=== PATIENT | female | born 2005 | race Hispanic/Latino ===

== ENCOUNTER 2023-02-24 13:43 | Outpatient (CLI) | payer OTHER, SELFPAY ==
[2023-02-24 17:50] LABS: Thyroid Stimulating Hormone < 0.015 uIU/mL (0.465-4.680)
[2023-02-28 11:36] LABS: Thyroid Peroxidase Antibodies 383 IU/mL (<9)
== END 2023-02-24 13:44 | disposition home or self-care (01) ==
LOC: ANHWCLAB 13:48
PROVIDERS: PCP Registered Nurse; Visit Provider Internal Medicine
DX: R79.89 Other specified abnormal findings of blood chemistry (principal)
CPT/HCPCS: 36415; 84439; 84443; 84445; 86376

== ENCOUNTER 2023-07-13 14:01 | Outpatient (CLI) | payer OTHER, SELFPAY ==
[2023-07-13 16:52] LABS: Alanine Aminotransferase 37 U/L (6-35); Albumin Level 4.2 g/dL (3.5-5.1); Alkaline Phosphatase 156 U/L (38-126); Anion Gap 12 mmol/L (8-16); Aspartate Amino Transferase 58 U/L (14-36); Bilirubin,Total 0.4 mg/dL (0.2-1.3); Blood Urea Nitrogen 9 mg/dL (7-17); Calcium 9.2 mg/dL (8.4-10.2); Carbon Dioxide 20 mmol/L (22-30); Chloride 105 mmol/L (98-107); Estimated Glomerular Filt Rate > 60; Glucose 100 mg/dL (65-110); Sodium 137 mmol/L (137-145)
[2023-07-13 17:14] LABS: SPREG INTERNAL CONTROL Positive; Serum Qual hCG Negative
[2023-07-13 17:15] LABS: Free T4 Free Thyroxine 3.06 ng/mL (0.78-2.19)
[2023-07-13 17:30] LABS: Thyroid Stimulating Hormone < 0.015 uIU/mL (0.465-4.680)
[2023-07-13 18:10] LABS: Total Triiodothyronine (T3) 2.46 NG/ML (0.97-1.69)
[2023-07-16 14:31] LABS: Thyroid Stimulating Immunoglob 198 % baseline (<140)
[2023-07-19 20:38] LABS: Thyrotropin Receptor Antibody 2.94 IU/L (<=2.00)
== END 2023-07-13 14:02 | disposition home or self-care (01) ==
LOC: ANHWCLAB 14:03
PROVIDERS: PCP Registered Nurse; Visit Provider Internal Medicine
DX: E04.1 Nontoxic single thyroid nodule (principal); E05.90 Thyrotoxicosis, unspecified without thyrotoxic crisis or storm; N92.6 Irregular menstruation, unspecified
CPT/HCPCS: 36415; 80053; 83519; 84439; 84443; 84445; 84480; 84703

== ENCOUNTER 2023-08-20 16:25 | Outpatient (CLI) | payer OTHER, SELFPAY ==
--- NOTE | ~2023-08-20 | US_ITS ---
EXAMINATION: US thyroid DATE: 08/20/2023 16:49 INDICATION: Thyroid nodule. Hyperthyroidism. TECHNIQUE: Multiple ultrasound images of the thyroid were obtained. COMPARISON: None. FINDINGS: The right thyroid lobe measures 5.1 x 1.7 x 1.8 cm. The left thyroid lobe measures 4.5 x 1.2 x 1.4 c m. The thyroid is diffusely heterogeneous and hypoechoic with increased vascularity. No discrete nod ule. IMPRESSION: 1. Heterogeneous, hypervascular thyroid, consistent with chronic lymphocytic (Kalpana) thyroiditis versus Graves disease. Reviewed, dictated and finalized at location E. OGY INSTRUCTOR IMPRESSION: 1. Heterogeneous, hypervascular thyroid, consistent with chronic lymphocytic (H ashimoto) thyroiditis versus Graves disease.
== END 2023-08-20 16:26 | disposition home or self-care (01) ==
PROVIDERS: PCP Registered Nurse; Visit Provider Internal Medicine
DX: E04.1 Nontoxic single thyroid nodule (principal); E05.90 Thyrotoxicosis, unspecified without thyrotoxic crisis or storm
CPT/HCPCS: 76536

== ENCOUNTER 2023-10-12 13:26 | Outpatient (CLI) | payer OTHER, SELFPAY ==
[2023-10-12 17:47] LABS: Thyroid Stimulating Hormone < 0.015 uIU/mL (0.465-4.680); Total Triiodothyronine (T3) 1.74 NG/ML (0.97-1.69)
[2023-10-12 18:49] LABS: Free T4 Free Thyroxine 1.59 ng/mL (0.78-2.19)
[2023-10-12 19:07] LABS: Alanine Aminotransferase 29 U/L (6-35); Albumin Level 4.3 g/dL (3.5-5.1); Alkaline Phosphatase 138 U/L (38-126); Anion Gap 11 mmol/L (4-12); Aspartate Amino Transferase 55 U/L (14-36); Bilirubin,Total 0.4 mg/dL (0.2-1.3); Blood Urea Nitrogen 11 mg/dL (7-17); Calcium 9.4 mg/dL (8.4-10.2); Carbon Dioxide 20 mmol/L (22-30); Chloride 108 mmol/L (98-107); Estimated Glomerular Filt Rate > 60; Glucose 78 mg/dL (65-110); Potassium 3.9 mmol/L (3.4-5.0); Sodium 139 mmol/L (137-145)
== END 2023-10-12 13:27 | disposition home or self-care (01) ==
LOC: ANHWCLAB 13:27
PROVIDERS: PCP Registered Nurse; Visit Provider Internal Medicine
DX: E05.90 Thyrotoxicosis, unspecified without thyrotoxic crisis or storm (principal); E04.1 Nontoxic single thyroid nodule; R79.89 Other specified abnormal findings of blood chemistry
CPT/HCPCS: 36415; 80053; 84439; 84443; 84480

== ENCOUNTER 2023-11-24 10:32 | Outpatient (CLI) | payer OTHER, SELFPAY ==
[2023-11-24 12:53] LABS: Alanine Aminotransferase 53 U/L (6-35); Albumin Level 4.4 g/dL (3.5-5.1); Alkaline Phosphatase 130 U/L (38-126); Anion Gap 8 mmol/L (4-12); Aspartate Amino Transferase 82 U/L (14-36); Bilirubin,Total 0.7 mg/dL (0.2-1.3); Blood Urea Nitrogen 9 mg/dL (7-17); Calcium 9.4 mg/dL (8.4-10.2); Carbon Dioxide 21 mmol/L (22-30); Chloride 108 mmol/L (98-107); Estimated Glomerular Filt Rate > 60; Glucose 102 mg/dL (65-110); Potassium 4.1 mmol/L (3.4-5.0); Sodium 137 mmol/L (137-145)
[2023-11-24 13:23] LABS: Thyroid Stimulating Hormone < 0.015 uIU/mL (0.465-4.680); Total Triiodothyronine (T3) 2.13 NG/ML (0.97-1.69)
[2023-11-24 15:01] LABS: Free T4 Free Thyroxine 2.24 ng/mL (0.78-2.19)
[2023-11-25 10:48] LABS: Prolactin 6.5 ng/mL
== END 2023-11-24 10:33 | disposition home or self-care (01) ==
LOC: ANHWCLAB 10:33
PROVIDERS: PCP Registered Nurse; Visit Provider Internal Medicine
DX: E05.90 Thyrotoxicosis, unspecified without thyrotoxic crisis or storm (principal); E04.1 Nontoxic single thyroid nodule; N92.6 Irregular menstruation, unspecified
CPT/HCPCS: 36415; 80053; 84146; 84439; 84443; 84480

== ENCOUNTER 2024-03-21 15:09 | Outpatient (CLI) | payer OTHER, SELFPAY ==
[2024-03-21 16:02] LABS: Alanine Aminotransferase 47 U/L (6-35); Albumin Level 4.6 g/dL (3.5-5.1); Alkaline Phosphatase 111 U/L (38-126); Anion Gap 11 mmol/L (4-12); Aspartate Amino Transferase 38 U/L (14-36); Bilirubin,Total 0.4 mg/dL (0.2-1.3); Blood Urea Nitrogen 9 mg/dL (7-17); Calcium 9.4 mg/dL (8.4-10.2); Carbon Dioxide 24 mmol/L (22-30); Chloride 101 mmol/L (98-107); Estimated Glomerular Filt Rate > 60; Glucose 90 mg/dL (65-110); Potassium 3.7 mmol/L (3.4-5.0); Sodium 136 mmol/L (137-145)
[2024-03-21 16:33] LABS: Thyroid Stimulating Hormone < 0.015 uIU/mL (0.465-4.680); Total Triiodothyronine (T3) 2.17 NG/ML (0.97-1.69)
[2024-03-21 18:49] LABS: Free T4 Free Thyroxine 1.89 ng/mL (0.78-2.19)
[2024-03-23 04:39] LABS: DHEA-Sulfate 107 mcg/dL (44-286)
[2024-03-26 13:58] LABS: Testosterone Total 42 ng/dL (2-45)
[2024-03-29 06:08] LABS: Testosterone Free 3.5 pg/mL (0.2-5.0)
== END 2024-03-21 15:10 | disposition home or self-care (01) ==
LOC: ANHLAB 15:12
PROVIDERS: PCP Registered Nurse; Visit Provider Internal Medicine
DX: E04.1 Nontoxic single thyroid nodule (principal); R74.8 Abnormal levels of other serum enzymes
CPT/HCPCS: 36415; 80053; 82627; 83498; 84402; 84403; 84439; 84443; 84480

== ENCOUNTER 2024-08-25 15:54 | Outpatient (CLI) | payer OTHER, SELFPAY ==
--- OUTSIDE RECORDS SUMMARY | 2024-08-25 15:57 | XMS_ITS | Patient Health Summary ---
Author Organization [facility] Address [address] [place] [address] Care Team Providers Care Floorhand Name Role Phone Dania Hudson Kayode SINGER SONGWRITER-BAG CHECKER Primary Care Pro vider Note from [facility],non-owned Affiliates and Associated Physician Practices is amultiple site organization consisting of ambulatory clinics and hospital sitesin [place], [place], [place] and [place]. This disclosure is being madepursuant to the Care Everywhere program and may not contain all information available regarding this patient. Last updated 18.[facility] Allergies No known active allergies Medications * Be aware that medications may not be up to date on this document. Alwaysverify current medications with the patient. * clobetasol (TEMOVATE) 0.05 % solution(Started 10/01/2016) Apply to affected area 2 times daily Apply to areas of hairloss on scalp twice daily. 2 refills remaining * fluocinonide (LIDEX) 0.05 % solution(Started 10/06/2016) Apply to areas of hairloss on scalp twice daily Active Problems Problem Noted Date Diagnosed Date Alopecia areata 10/01/2016 Social History Tobacco Use Types Packs/Day Years Used Date Smoking Tobacco: Passive Smo ke Exposure - Never Smoker Alcohol Use Standard Drinks/Week Comments No 0 (1 standard drink = 0.6 oz pur e alcohol) Sex and Gender Information Value Date Recorded Sex Assigned at Not on file Gender Identity Not on file Sexual Orientation Not on file Last Filed Vital Signs Vital Sign Reading Time Taken Comments Blood Pressure - - Pulse - - Temperature - - Respiratory Rate - - Oxygen Saturation - - Inhaled Oxygen Concentration - - Weight 56.9 kg (125 lb 7.1 oz) 10/01/2016 2:33 P M CDT Height 163 cm (5' 4.17 ) 10/01/2016 2:33 PM CDT Body Mass Index 21.42 10/01/2016 2:33 PM CDT Care Teams Floorhand Relationship Specialty Start Date End Date Dania Hudson APRN-BAG CHECKER [address] [place] [id number] PCP - General Nurse Practitioner 07/02/16
--- OUTSIDE RECORDS SUMMARY | 2024-08-25 15:57 | XMS_ITS | Referral Summary ---
Author Organization [facility] Address [address] [place] [address] Care Team Providers Care Turner Machine Name Role Phone Dania Hudson NP Primary Care Provider [phone] Sheldon Ureña MD Unavailable [phone] Marzena Gipson MD Unavailable [phone] Encounters Date Type Department Care Team Description 08/01/2024 Telephone [facility] Emergency Department [address] [place] [address] Serafin Pratt RN 07/30/2024 11:31 PM MANAGER SERVICING - 07/31/2024 1:44 AM [facility] Emergency [facility] Emergency Department [address] [place] [address] Hypothyroidism, unspecified type (Primary Dx); Generalized body aches Discharge Disposition: Discharge to home or self care from Last 3 Months Allergies No known active allergies Medications propylthiouraci L (PTU) 50 mg tablet Take 1 tablet (50 mg total) by mouth 3 (three) times a day 4 Active levothyroxine (SYNTHROID) 75 mcg tablet Take 1 tablet (75 mcg total) by mouth real estate accountant before breakfast 30 tablet 5 08/30/19 25 Active Active Problems Problem Noted Date Diagnosed Date Graves disease 10/25/2023 Social History Tobacco Use Types Packs/Day Years Used Date Smoking Tobacco: Never Smokeless Tobacco: Never Tobacco Cessation:Counseling Given: Not Answered Personal Safety Answer Date Recorded Have you ever been in or are you currently in a harmful physical or emotional relationship or is someone making you feel afraid or unsafe? Denies 07/30/2024 Comments Unknown Sex and Gender Information Value Date Recorded Sex Assigned at Not on file Legal Sex Female 3:40 PM CDT Gender Identity Female 03/11/2021 3:43 PM CDT Sexual Orientation Not on file Last Filed Vital Signs Vital Sign Reading Time Taken Comments Blood Pressure 142/97 07/30/2024 9:50 PM MANAGER SERVICING Pulse 87 07/30/2024 9:50 PM MANAGER SERVICING Temperature 36.6 C (97.8 F) 07/30/2024 9:50 PM MANAGER SERVICING Respiratory Rate 18 07/30/2024 9:50 PM MANAGER SERVICING Oxygen Saturation 100% 07/30/2024 9:50 PM MANAGER SERVICING Inhaled Oxygen Concentration - - Weight 86.2 kg (190 lb) 07/30/2024 9:50 PM MANAGER SERVICING Height 167.6 cm (5' 6 ) 07/30/2024 9:50 PM MANAGER SERVICING Body Mass Index 30.67 07/30/2024 9:50 PM MANAGER SERVICING Plan of Treatment Not on file Procedures Procedure Name Priority Date/Time Associated Diagnosis Comments RESPIRATORY PATHOGEN PANEL Routine 07/31/2024 12:13 AM MANAGER SERVICING POCT HCG, URINE Routine 07/30/2024 10:21 PM MANAGER SERVICING URINALYSIS, MICROSCOPIC ONLY STAT 07/30/2024 10:10 PM MANAGER SERVICING URINALYSIS AND REFLEX TO MICROSCOPIC AND CULTURE STAT 07/30/2024 10:10 PM MANAGER SERVICING T4, FREE STAT 07/30/2024 10:01 PM MANAGER SERVICING TSH STAT 07/30/2024 10:01 PM MANAGER SERVICING EGFR STAT 07/30/2024 10:01 PM MANAGER SERVICING DIFFERENTIAL AUTO STAT 07/30/2024 10: 01 PM MANAGER SERVICING CREATINE KINASE (CK), TOTAL STAT 07/30/2024 10:01 PM MANAGER SERVICING ERYTHROCYTE SEDIMENTATION RATE STAT 07/30/2024 10:01 PM MANAGER SERVICING COMPREHENSIVE METABOLIC PANEL STAT 07/30/2024 10:01 PM MANAGER SERVICING CBC WITH AUTO DIFFERENTIAL STAT 07/30/2024 10:01 PM MANAGER SERVICING from Last 3 Months Results * Respiratory pathogen panel Nasopharyngeal (07/31/2024 12:13 AM MANAGER SERVICING) [facility] Influenza A RNA Not Detected Not Detected Influenza B RNA Not Detected Not Detected [facility] RSV RNA Not Detected Not Detected [facility] COVID-19 RNA Not Detected Not Detected [facility] Coronavirus 229E RNA Not Detected Not Detected [facility] Coronavirus HKU1 RNA Not Detected Not Detected [facility] Coronavirus NL63 RNA Not Detected Not Detected [facility] Coronavirus OC43 RNA Not Detected Not Detected [facility] Adenovirus DNA Not Detected Not Detected [facility] Metapneumovirus RNA Not Detected Not Detected [facility] Rhinovirus/Enterov irus RNA Not Detected Not Detected [facility] Parainfluenza 1 RNA Not Detected Not Detected [facility] Parainfluenza 2 RNA Not Detected Not Detected [facility] Parainfluenza 3 RNA Not Detected Not Detected [facility] Parainfluenza 4 RNA Not Detected Not Detected [facility] B. pertussis DNA Not Detected Not Detected [facility] B. parapertussis DNA Not Detected Not Detected [facility] C. pneumoniae DNA Not Detected Not Detected [facility] M. pneumoniae DNA Not Detected Not Detected [facility] Nasopharyngeal 07/31/2024 12 :13 AM MANAGER SERVICING 07/31/2024 12:39 AM MANAGER SERVICING Narrative [facility] - 07/31/2024 1:37 AM MANAGER SERVICING Is the Patient experiencing symptoms consistent with COVID?->No Surveillance testing for transplant patient?->No Interpretive Data The [employer] FilmArray Respiratory Panel (RP2.1) assay is a multiplexed real-time PCR based nucleic acid test capable of simultaneous qualitative detection and identification of multiple respiratory viral and bacterial nucleic acids, including SARS Coronavirus 2 (the causative agent of COVID-19). The following bacteria, viruses and virus subtypes can be identified using the FilmArray RP2.1 assay: Bordetella pertussis, Bordetella parapertussis, Chlamydia pneumoniae, Mycoplasma pneumoniae, Adenovirus, SARS Coronavirus 2, seasonal coronaviruses (Coronavirus HKU1, Coronavirus NL63, Coronavirus 229E, and Coronavirus OC43), Influenza A, Influenza A subtype H1, Influenza A subtype H3, Influenza A subtype 2009 H1, Influenza B, Metapneumovirus, Parainfluenza 1, Parainfluenza 2, Parainfluenza 3, Parainfluenza 4, RSV, Rhinovirus/Enterovirus. Due to the genetic similarity between human Rhinovirus and Enterovirus, the FilmArray RP2.1 assay cannot reliably differentiate them. Coronavirus OC43 may cross-react with some isolates of Coronavirus HKU1. A dual positive result may be due to cross-reactivity or may indicate a co- infection. The detection and identification of specific viral and bacterial nucleic acids from individuals exhibiting signs and symptoms of a respiratory infection aids in the diagnosis of respiratory infection if used in conjunction with other clinical and epidemiological information. The results of this test should not be used as the sole basis for diagnosis, treatment, or other management decisions. Negative results in the setting of a respiratory illness may be due to infection with pathogens that are not detected by this test. Positive results do not rule out infection/co-infection with other organisms. The agent(s) detected by the FilmArray RP2.1 may not be the definite cause of disease. Additional testing (lab, imaging, etc.) may be necessary when evaluating a patient with possible respiratory tract infection. The FilmArray RP2.1 assay has FDA clearance for testing of HIDE INSPECTOR swabs. The performance of additional specimen types has been assessed by the performing laboratory. The performance characteristics of this assay have been determined by [facility]. Current interpretive data was last revised on 22. us Debi Garza HIDE INSPECTOR LAB MICROBIOLOGY - GENERAL ORDER [place]UV[place] Final Result [facility] Department [place] [address] * POCT hCG, urine (07/30/2024 10:21 PM MANAGER SERVICING) HCG, ur, POC Negative Negative Lot Number [id number] QC Backgroud Clear Acceptable QC Control Line Acceptable Urine 07/30/2024 10:2 1 PM MANAGER SERVICING Kelvin Dolan MD PhD POINT OF CARE TEST ORDERABLES Final Result * (ABNORMAL) Urinalysis reflex to microscopic and culture Urine (07/30/2024 10:10 PM MANAGER SERVICING) Color, ur Straw Yellow Clarity, ur Clear Clear [facility] Specific gravity, ur 1.021 1.003 - 1.030 [facility] pH, urine 6.5 [facility] Comment: Interpretive Data U rine pH is affected by diet, medications, systemic acid-base disturbances, and renal tubular function. pH may affect urinary stone formation. For example, urine pH below 6.0 may help reduce the tendency for calcium phosphate stones and pH greater than 6.0 may reduce the tendency for uric acid stone formation. Source: [facility] Current Interpretive Data was last revised on 2017 Protein, ur ql Trace Negative [facility] Glucose, ur ql Negative Negative [facility] Ketones, ur Negative Negative [facility] Bilirubin, ur Negative Negative [facility] Blood, ur 3+(A) Negative [facility] Urobilinogen, ur <2.0 <2.0 mg/dL [facility] Nitrite, ur Negative Negative [facility] Leukocyte esterase, ur Negative Negative [facility] UA reflex comment Reflex to microscopic UA will be performed. [facility] Urine 07/30/2024 10:1 0 PM MANAGER SERVICING 07/30/2024 10:15 PM MANAGER SERVICING Kelvin Dolan MD PhD LAB MICROBIOLOGY - GENERAL ORDERABLES Final Result [facility] Department [place] [address] * (ABNORMAL) Urinalysis, microscopic only (07/30/2024 10:10 PM MANAGER SERVICING) WBC, ur 0-5 0 - 5 /HPF RBC, ur >50(A) 0 - 2 /HPF [facility] Epithelial cells, squamous, ur 1-5 0 - 5 /HPF [facility] Bacteria, ur Trace(A) [facility] Mucous, ur Present(A) [facility] Culture Reflex Comment Reflex conditions for urine culture (WBC >10) not met. [facility] Urine 07/30/2024 10:1 0 PM MANAGER SERVICING 07/30/2024 10:15 PM MANAGER SERVICING us Kelvin Dolan MD PhD LAB URINE ORDERABLE S Final Result Performing Organization Address City/State/[facility] Co de Phone Number [facility] Department [place] [address] * eGFR (07/30/2024 10:01 PM MANAGER SERVICING) eGFR 89 >=60 mL/min/1. 73 m2 Comment: Interpretive Data Reference Interval Normal >/= 90 mL/min/1.73m2 Mildly decreased* 60 - 89 mL/min/1.73m2 Mildly to moderately decreased 45 - 59 mL/min/1.73m2 Moderately to severely decreased 30 - 44 mL/min/1.73m2 Severely decreased 15 - 29 mL/min/1.73m2 Kidney Failure < 15 mL/min/1.73m2 *Relative to young adult level Estimated glomerular filtration rate is determined by the 2020 CKD-EPI equation recommended by the National Kidney Foundation (A Unifying Approach to GFR Estimation: Recommendations of the NKF-ASK Task Force on Reassessing the Inclusion of Race in Diagnosing Kidney Disease, JASN 2020). The CKD-EPI equation should not be used for patients with unstable renal function and has not been validated in children and those over 70. Current interpretive data was last reviewed 2021. Blood 07/30/2024 10:0 1 PM MANAGER SERVICING 07/30/2024 10:17 PM MANAGER SERVICING us Kelvin Dolan MD PhD LAB BLOOD ORDERABLE S Final Result [facility] Department [place] [address] * Differential, auto (07/30/2024 10:01 PM MANAGER SERVICING) Neutrophil abs 3.5 1.5 - 6.5 K/cumm Imm gran abs 0.0 0.0 - 0.1 K/cumm [facility] Lymphocyte abs 2.2 0.8 - 3.3 K/cumm [facility] Monocyte abs 0.4 0.2 - 0.8 K/cumm [facility] Eosinophil abs 0.3 0.0 - 0.5 K/cumm [facility] Basophil abs 0.1 0.0 - 0.1 K/cumm [facility] Neutrophil pct 53.3 % [facility] Comment: Interpretive Data Percent cell count reference ranges are not reported, since discordance with absolute values may lead to misinterpretation of CBC data. Current Interpretive Data was last revised on 2017. Imm gran pct 0.2 % [facility] Comment: Interpretive Data Percent cell count reference ranges are not reported, since discordance with absolute values may lead to misinterpretation of CBC data. Current Interpretive Data was last revised on 2017. Lymphocyte pct 33.9 % [facility] Comment: Interpretive Data Percent cell count reference ranges are not reported, since discordance with absolute values may lead to misinterpretation of CBC data. Current Interpretive Data was last revised on 2017. Monocyte pct 6.8 % [facility] Comment: Interpretive Data Percent cell count reference ranges are not reported, since discordance with absolute values may lead to misinterpretation of CBC data. Current Interpretive Data was last revised on 2017. Eosinophil pct 4.9 % [facility] Comment: Interpretive Data Percent cell count reference ranges are not reported, since discordance with absolute values may lead to misinterpretation of CBC data. Current Interpretive Data was last revised on 2017. Basophil pct 0.9 % [facility] Comment: Interpretive Data Percent cell count reference ranges are not reported, since discordance with absolute values may lead to misinterpretation of CBC data. Current Interpretive Data was last revised on 2017. Blood 07/30/2024 10:0 1 PM MANAGER SERVICING 07/30/2024 10:17 PM MANAGER SERVICING us Kelvin Dolan MD PhD LAB BLOOD ORDERABLE S Final Result Performing Organization Address City/[facility]/ZIP Co de Phone Number [facility] Department [place] [address] * (ABNORMAL) CBC with auto differential (07/30/2024 10:01 PM MANAGER SERVICING) WBC 6.5 3.8 - 9.9 K/cumm Hgb 11.6(L) 11.9 - 15.5 g/dL [facility] Hct 36.3 35.6 - 45.5 % [facility] Plt 311 150 - 400 K/cumm [facility] MPV 10.6 9.1 - 12.3 fL [facility] RBC 4.32 3.90 - 5.20 M/cumm [facility] MCV 84.0 81.3 - 96.4 fL [facility] MCH 26.9(L) 27.1 - 33.3 pg [facility] MCHC 32.0(L) 32.3 - 35.7 g/dL [facility] RDW CV 19.8(H) 11.1 - 14.9 % [facility] RDW SD 59.8(H) 35.7 - 48.1 fL [facility] NRBC abs 0.00 0.00 - 0.01 K/cumm [facility] Blood 07/30/2024 10:0 1 PM MANAGER SERVICING 07/30/2024 10:17 PM MANAGER SERVICING us Kelvin Dolan MD PhD LAB BLOOD ORDERABLE S Final Result Performing Organization Address City/[facility]/ZIP Co de Phone Number [facility] Department [place] [address] * (ABNORMAL) Erythrocyte sedimentation rate (07/30/2024 10:01 PM MANAGER SERVICING) Erythrocyte sedimentation rate 25(H) 1 - 20 mm/hr Blood 07/30/2024 10:0 1 PM MANAGER SERVICING 07/30/2024 10:17 PM MANAGER SERVICING Kelvin Dolan MD PhD LAB BLOOD ORDERABLE S Final Result Performing Organization Address [facility] de Phone Number [facility] [place] [address] * (ABNORMAL) TSH (07/30/2024 10:01 PM MANAGER SERVICING) Thyroid Stimulating Hormone 81.30(H) 0.30 - 4.20 mcIUnit/mL Blood 07/30/2024 10:0 1 PM MANAGER SERVICING 07/30/2024 10:17 PM MANAGER SERVICING Debi Garza NP LAB BLOOD ORDERABLES Final Resul t Performing Organization Address [facility] de Phone Number [facility] [place] [address] * (ABNORMAL) T4, free (07/30/2024 10:01 PM MANAGER SERVICING) Free T4 0.24(L) 0.90 - 1.70 ng/dL Blood 07/30/2024 10:0 1 PM MANAGER SERVICING 07/30/2024 10:17 PM MANAGER SERVICING Debi Garza HIDE INSPECTOR LAB BLOOD ORDERABLES Final Resul t Performing Organization Address [facility] de Phone Number [facility] [place] [address] * (ABNORMAL) Creatine kinase (CK), total (07/30/2024 10:01 PM MANAGER SERVICING) CK 504(H) 30 - 200 Units/L Blood 07/30/2024 10:0 1 PM MANAGER SERVICING 07/30/2024 10:17 PM MANAGER SERVICING us Kelvin Dolan MD PhD LAB BLOOD ORDERABLE S Final Result [facility] Department [place] [address] * (ABNORMAL) Comprehensive metabolic panel (07/30/2024 10:01 PM MANAGER SERVICING) Sodium 140 135 - 145 mmol/L Potassium, pl 3.9 3.3 - 4.9 mmol/L [facility] Chloride 100 97 - 110 mmol/L [facility] CO2 28 22 - 32 mmol/L [facility] Anion gap 12 2 - 15 mmol/L [facility] BUN 14 6 - 25 mg/dL [facility] Creatinine 0.94 0.60 - 1.10 mg/dL [facility] Glucose 98 70 - 199 mg/dL [facility] Comment: Interpretive Data Fasting glucose >/= 126 mg/dl is diagnostic for diabetes. Fasting is defined as no caloric intake for at least 8 hours. Fasting glucose between 100 mg/dl to 125 mg/dl is diagnostic of prediabetes. In a patient with classic symptoms of hyperglycemia or hyperglycemic crisis, a random glucose >/= 200 mg/dl is diagnostic for diabetes. In the absence of unequivocal hyperglycemia, results should be confirmed by repeat testing. The classification and Diagnosis of Diabetes Diabetes Care 2021; 46: S19-S40. Current interpretive data was last revised 2022. Calcium 10.2 8.5 - 10.3 mg/dL [facility] Bilirubin, total 0.4 0.1 - 1.2 mg/dL [facility] Protein, pl 8.8(H) 6.5 - 8.5 g/dL [facility] Albumin 5.0 3.5 - 5.0 g/dL [facility] Alk phos 113 40 - 130 Units/L [facility] ALT 40 7 - 45 Units/L [facility] AST 45 10 - 45 Units/L [facility] Blood 07/30/2024 10:0 1 PM MANAGER SERVICING 07/30/2024 10:17 PM MANAGER SERVICING us Kelvin Dolan MD PhD LAB BLOOD ORDERABLE S Final Result [facility] Department [place] [address] from Last 3 Months Insurance MEDICAID GENERIC OTHER Care Teams Turner Machine Relationship Specialty Start Date End Date Dania Hudson NP [address] [place] [id number] PCP - General Nurse Practitioner 03/11/21 Sheldon Ureña MD [address] [place] [id number] Consulting Physician Internal Medicine 10/22/23 Marzena Gipson MD [address] [place] [phone] Radiation Oncologist Radiation Oncology 10/22/23
--- OUTSIDE RECORDS SUMMARY | 2024-08-25 15:57 | XMS_ITS | Clinical Summary ---
Author Organization [facility] Address [address] [place] [address] Care Team Providers Care Clinical Dietitian Name Role Phone Dania Hudson SAP TREASURY CONSULTANT-WARP DRAWER Primary Care Pro vider Source Comments [facility],non-owned Affiliates and Associated Physician Practices is amultiple site organization consisting of ambulatory clinics and hospital sitesin [place], [place], [place] and [place]. This disclosure is being madepursuant to the Care Everywhere program and may not contain all information available regarding this patient. Last updated 18.[facility] Allergies No known active allergies Medications * Be aware that medications may not be up to date on this document. Alwaysverify current medications with the patient. Medication Sig Dispensed Refills Start Date End Date Status clobetasol (TEMOVATE) 0.05 % solutionIndications:A lopecia areata Apply to affected area 2 times daily Apply to areas of hairloss on scalp twice daily. 1 Bottle 2 10/01/2016 Active fluocinonide (LIDEX) 0.05 % solutionIndications:A lopecia areata Apply to areas of hairloss on scalp twice daily 60 mL 10/06/2016 Active Active Problems Problem Noted Date Diagnosed Date Alopecia areata 10/01/2016 Overview (10/01/2016): Onset 12.5 years of age, mild . Previously tried bethamethasone < 1 wk without improvement. 10/01/16 patchy; <0.5% involvement; offered [place]; Rx clobetasol soln Family History Medical History Relation Name Comments Hyperlipidemia Maternal Grandmother Relation Name Status Comments Maternal Grandmother Social History Tobacco Use Types Packs/Day Years [...] Mass Index 21.42 10/01/2016 2:33 PM CDT Plan of Treatment Health Maintenance Due Date Last Done Comments PAP SMEAR 2003 HIV SCREENING 2018 HPV VACCINE (1 - 3-dose series) 2018 CHLAMYDIA/GONORRHEA SCREENING 2019 MENINGOCOCCAL (Group B) VACC INE (1 of 2 - Standard) 2019 HEPATITIS C SCREENING 06/11/2021 DTAP/TDAP/TD VACCINES (1 - Tdap) 2022 HEPATITIS B VACCINE (1 of 3 - 19+ 3-dose series) 2022 COVID-19 VACCINE (1 - 2023-2 5 season) 2024 INFLUENZA VACCINE (#1) 2024 DEPRESSION SCREENING 07/12/2024 ZOSTER VACCINE (1 of 2) 2053 HIB VACCINE Aged Out No longer eligi ble based on patient's age to complete this topic MENINGOCOCCAL VACCINE Aged Out No renetta moy eligible based on patient's age to complete this topic PNEUMOCOCCAL VACCINE Aged Out No long er eligible based on patient's age to complete this topic Care Teams Clinical Dietitian Relationship Specialty Start Date End Date Dania uHdson, ALONSO-MARYAN [address] [place] [phone] PCP - General Nurse Practitioner 07/02/16
--- OUTSIDE RECORDS SUMMARY | 2024-08-25 15:57 | XMS_ITS | Clinical Summary ---
Author Organization [facility] Address [address] [place] [address] Care Team Providers Care Railway Head Tender Name Role Phone Dania Hudson NP Primary Care Provider [phone] Sheldon Ureña MD Unavailable [phone] Marzena Gipson MD Unavailable [phone] Allergies No known active allergies Medications propylthiouraci L (PTU) 50 mg tablet Take 1 tablet (50 mg total) by mouth 3 (three) times a day 4 Active levothyroxine (SYNTHROID) 75 mcg tablet Take 1 tablet (75 mcg total) by mouth manager of purchasing before breakfast 30 tablet 5 08/30/19 25 Active Active Problems Problem Noted Date Diagnosed Date Graves disease 10/25/2023 Encounters Date Type Department Care Team Description 08/01/2024 Telephone [facility] Emergency Department [address] [place] [address] Serafin Pratt RN 07/30/2024 11:31 PM FILLING HAULER - 07/31/2024 1:44 AM FILLING HAULER Emergency [facility] Emergency Department [address] [place] [address] Hypothyroidism, unspecified type (Primary Dx); Generalized body aches Discharge Disposition: Discharge to home or self care from Last 3 Months Medical History Medical History Date Comments Thyroid disease Social History Tobacco Use Types Packs/Day Years [...] PM CDT Sexual Orientation Not on file Obstetrics History Last Filed Vital Signs Vital Sign Reading Time Taken Comments Blood Pressure 142/97 07/30/2024 9:50 PM FILLING HAULER Pulse 87 07/30/2024 9:50 PM FILLING HAULER Temperature 36.6 C (97.8 F) 07/30/2024 9:50 PM FILLING HAULER Respiratory Rate 18 07/30/2024 9:50 PM FILLING HAULER Oxygen Saturation 100% 07/30/2024 9:50 PM FILLING HAULER Inhaled Oxygen Concentration - - Weight 86.2 kg (190 lb) 07/30/2024 9:50 PM FILLING HAULER Height 167.6 cm (5' 6 ) 07/30/2024 9:50 PM FILLING HAULER Body Mass Index 30.67 07/30/2024 9:50 PM FILLING HAULER Plan of Treatment Health Maintenance Due Date Last Done Comments Cervical Cancer Screening 2003 Depression Screening 2003 Hepatitis C Screening 2003 Meningococcal B Vaccine (2 o f 2 - Risk Bexsero 2-dose series) 04/10/2020 03/13/2020 Regular Well Visit/Exam 18-64 2021 Covid-19 Vaccine (4 - 2023-2 5 season) 2024 12/13/2020, 11/20/2020, 11/15/2020 Influenza Vaccine (#1) 2024 2, 03/21/2020, 04/12/2018, Additional history exists DTaP/Tdap/Td Vaccine (7 - Td or Tdap) 03/12/2025 03/12/2015, 03/06/2008, 10/01/2004, Additional history exists Pneumococcal vaccine <65 Completed 005, 2003, 2003, Additional history exists Varicella Vaccines Completed 03/06/2008, 07/16/2004 HPV Vaccines Completed 02/11/2016, 03/2016, 06/19/2015 Meningococcal Vaccine Completed 03/13/2020, 015 Procedures Procedure Name Priority Date/Time Associated Diagnosis Comments RESPIRATORY PATHOGEN PANEL Routine 07/31/2024 12:13 AM FILLING HAULER POCT HCG, URINE Routine 07/30/2024 10:21 PM FILLING HAULER URINALYSIS, MICROSCOPIC ONLY STAT 07/30/2024 10:10 PM FILLING HAULER URINALYSIS AND REFLEX TO MICROSCOPIC AND CULTURE STAT 07/30/2024 10:10 PM FILLING HAULER T4, FREE STAT 07/30/2024 10:01 PM FILLING HAULER TSH STAT 07/30/2024 10:01 PM FILLING HAULER EGFR STAT 07/30/2024 10:01 PM FILLING HAULER DIFFERENTIAL AUTO STAT 07/30/2024 10: 01 PM FILLING HAULER CREATINE KINASE (CK), TOTAL STAT 07/30/2024 10:01 PM FILLING HAULER ERYTHROCYTE SEDIMENTATION RATE STAT 07/30/2024 10:01 PM FILLING HAULER COMPREHENSIVE METABOLIC PANEL STAT 07/30/2024 10:01 PM FILLING HAULER CBC WITH AUTO DIFFERENTIAL STAT 07/30/2024 10:01 PM FILLING HAULER from Last 3 Months Results * Respiratory pathogen panel Nasopharyngeal (07/31/2024 12:13 AM FILLING HAULER) Influenza A RNA Not Detected Not Detected Influenza B RNA Not Detected Not Detected [facility] RSV RNA Not Detected Not Detected [facility] COVID-19 RNA Not Detected Not Detected [facility] Coronavirus 229E RNA Not Detected Not Detected [facility] Coronavirus HKU1 RNA Not Detected Not Detected [facility] Coronavirus NL63 RNA Not Detected Not Detected [facility] Coronavirus OC43 RNA Not Detected Not Detected [facility] Adenovirus DNA Not Detected Not Detected [facility] Metapneumovirus RNA Not Detected Not Detected [facility] Rhinovirus/Enterov irus RNA Not Detected Not Detected [facility] Parainfluenza 1 RNA Not Detected Not Detected [facility] Parainfluenza 2 RNA Not Detected Not Detected [facility] Parainfluenza 3 RNA Not Detected Not Detected [facility] Parainfluenza 4 RNA Not Detected Not Detected [facility] B. pertussis DNA Not Detected Not Detected [facility] B. parapertussis DNA Not Detected Not Detected [facility] C. pneumoniae DNA Not Detected Not Detected [facility] M. pneumoniae DNA Not Detected Not Detected [facility] Nasopharyngeal 07/31/2024 12 :13 AM FILLING HAULER 07/31/2024 12:39 AM FILLING HAULER Narrative [facility] - 07/31/2024 1:37 AM FILLING HAULER Is the Patient experiencing symptoms consistent with COVID?->No Surveillance testing for transplant patient?->No Interpretive Data The [employer] Film[employer] Respiratory Panel (RP2.1) assay is a [...] assay has FDA clearance for testing of MANAGER EMERGENCY swabs. The performance of additional specimen types has been assessed by the performing laboratory. The performance characteristics of this assay have been determined by [facility] Infectious Disease [facility]. Current interpretive data was last revised on 22. Debi Garza MANAGER EMERGENCY LAB MICROBIOLOGY - GENERAL ORDER LLUVIA Final Result [facility] One [facility] Department [place] [address] * POCT hCG, urine (07/30/2024 10:21 PM FILLING HAULER) HCG, ur, POC Negative Negative Lot Number [id number] QC Backgroud Clear Acceptable QC Control Line Acceptable Urine 07/30/2024 10:2 1 PM FILLING HAULER Kelvin Dolan MD PhD POINT OF CARE TEST ORDERABLES Final Result * (ABNORMAL) Urinalysis reflex to microscopic and culture Urine (07/30/2024 10:10 PM FILLING HAULER) Color, ur Straw Yellow Clarity, ur Clear Clear [facility] Specific gravity, ur 1.021 1.003 - 1.030 [facility] pH, urine 6.5 [facility] Comment: Interpretive Data U rine pH is affected by diet, medications, systemic acid-base disturbances, and renal tubular function. pH may affect urinary stone formation. For example, urine pH below 6.0 may help reduce the tendency for calcium phosphate stones and pH greater than 6.0 may reduce the tendency for uric acid stone formation. Source: [facility] Current Interpretive Data was last revised on 2017 Protein, ur ql Trace Negative [facility] Glucose, ur ql Negative Negative [facility] Ketones, ur Negative Negative [facility] Bilirubin, ur Negative Negative [facility] Blood, ur 3+(A) Negative [facility] Urobilinogen, ur <2.0 <2.0 mg/dL [facility] Nitrite, ur Negative Negative [facility] Leukocyte esterase, ur Negative Negative [facility] UA reflex comment Reflex to microscopic UA will be performed. [facility] Urine 07/30/2024 10:1 0 PM FILLING HAULER 07/30/2024 10:15 PM FILLING HAULER us Kelvin Dolan MD PhD LAB MICROBIOLOGY - GENERAL ORDERABLES Final Result Performing Organization Address [facility] Co de Phone Number [facility] Department [place] [address] * (ABNORMAL) Urinalysis, microscopic only (07/30/2024 10:10 PM FILLING HAULER) WBC, ur 0-5 0 - 5 /HPF RBC, ur >50(A) 0 - 2 /HPF [facility] Epithelial cells, squamous, ur 1-5 0 - 5 /HPF [facility] Bacteria, ur Trace(A) [facility] Mucous, ur Present(A) [facility] Culture Reflex Comment Reflex conditions for urine culture (WBC >10) not met. [facility] Urine 07/30/2024 10:1 0 PM FILLING HAULER 07/30/2024 10:15 PM FILLING HAULER us Kelvin Dolan MD PhD LAB URINE ORDERABLE S Final Result Performing Organization Address [facility] Co de Phone Number [facility] [place] [address] * eGFR (07/30/2024 10:01 PM FILLING HAULER) Pathologist [facility] eGFR 89 >=60 mL/min/1. 73 m2 Comment: [...] reviewed 2021. Blood 07/30/2024 10:0 1 PM FILLING HAULER 07/30/2024 10:17 PM FILLING HAULER us Kelvin Dolan MD PhD LAB BLOOD ORDERABLE S Final Result [facility] One [facility] Department [place] [address] * Differential, auto (07/30/2024 10:01 PM FILLING HAULER) Pathologist [facility] Neutrophil abs 3.5 1.5 - 6.5 K/cumm Imm gran abs 0.0 0.0 - 0.1 K/cumm [facility] Lymphocyte abs 2.2 0.8 - 3.3 K/cumm [facility] Monocyte abs 0.4 0.2 - 0.8 K/cumm [facility] Eosinophil abs 0.3 0.0 - 0.5 K/cumm [facility] Basophil abs 0.1 0.0 - 0.1 K/cumm [facility] Neutrophil pct 53.3 % [facility] Comment: Interpretive Data Percent cell count reference ranges are not reported, since discordance with absolute values may lead to misinterpretation of CBC data. Current Interpretive Data was last revised on 2017. Imm gran pct 0.2 % [facility] Comment: Interpretive Data Percent cell count reference ranges are not reported, since discordance with absolute values may lead to misinterpretation of CBC data. Current Interpretive Data was last revised on 2017. Lymphocyte pct 33.9 % [facility] Comment: Interpretive Data Percent cell count reference ranges are not reported, since discordance with absolute values may lead to misinterpretation of CBC data. Current Interpretive Data was last revised on 2017. Monocyte pct 6.8 % [facility] Comment: Interpretive Data Percent cell count reference ranges are not reported, since discordance with absolute values may lead to misinterpretation of CBC data. Current Interpretive Data was last revised on 2017. Eosinophil pct 4.9 % [facility] Comment: Interpretive Data Percent cell count reference ranges are not reported, since discordance with absolute values may lead to misinterpretation of CBC data. Current Interpretive Data was last revised on 2017. Basophil pct 0.9 % [facility] Comment: Interpretive Data Percent cell count reference ranges are not reported, since discordance with absolute values may lead to misinterpretation of CBC data. Current Interpretive Data was last revised on 2017. Blood 07/30/2024 10:0 1 PM FILLING HAULER 07/30/2024 10:17 PM FILLING HAULER us Kelvin Dolan MD PhD LAB BLOOD ORDERABLE S Final Result [facility] Department [place] [address] * (ABNORMAL) CBC with auto differential (07/30/2024 10:01 PM FILLING HAULER) WBC 6.5 3.8 - 9.9 K/cumm Hgb 11.6(L) 11.9 - 15.5 g/dL [facility] Hct 36.3 35.6 - 45.5 % [facility] Plt 311 150 - 400 K/cumm [facility] MPV 10.6 9.1 - 12.3 fL [facility] RBC 4.32 3.90 - 5.20 M/cumm [facility] MCV 84.0 81.3 - 96.4 fL [facility] MCH 26.9(L) 27.1 - 33.3 pg [facility] MCHC 32.0(L) 32.3 - 35.7 g/dL [facility] RDW CV 19.8(H) 11.1 - 14.9 % [facility] RDW SD 59.8(H) 35.7 - 48.1 fL [facility] NRBC abs 0.00 0.00 - 0.01 K/cumm [facility] Blood 07/30/2024 10:0 1 PM FILLING HAULER 07/30/2024 10:17 PM FILLING HAULER Kelvin Dolan MD PhD LAB BLOOD ORDERABLE S Final Result Performing Organization Address [facility] de Phone Number [facility] Department [place] [address] * (ABNORMAL) Erythrocyte sedimentation rate (07/30/2024 10:01 PM FILLING HAULER) Erythrocyte sedimentation rate 25(H) 1 - 20 mm/hr Blood 07/30/2024 10:0 1 PM FILLING HAULER 07/30/2024 10:17 PM FILLING HAULER Kelvin Dolan MD PhD LAB BLOOD ORDERABLE S Final Result Performing Organization Address [facility] de Phone Number [facility] Department [place] [address] * (ABNORMAL) TSH (07/30/2024 10:01 PM FILLING HAULER) Thyroid Stimulating Hormone 81.30(H) 0.30 - 4.20 mcIUnit/mL Blood 07/30/2024 10:0 1 PM FILLING HAULER 07/30/2024 10:17 PM FILLING HAULER Debi Garza NP LAB BLOOD ORDERABLES Final Resul t Performing Organization Address [facility] Co de Phone Number [facility] Department [place] [address] * (ABNORMAL) T4, free (07/30/2024 10:01 PM FILLING HAULER) [facility] Free T4 0.24(L) 0.90 - 1.70 ng/dL Blood 07/30/2024 10:0 1 PM FILLING HAULER 07/30/2024 10:17 PM FILLING HAULER Debi Garza MANAGER EMERGENCY LAB BLOOD ORDERABLES Final Resul t Performing Organization Address [facility] Co de Phone Number [facility] Department [place] [address] * (ABNORMAL) Creatine kinase (CK), total (07/30/2024 10:01 PM FILLING HAULER) [facility] CK 504(H) 30 - 200 Units/L Blood 07/30/2024 10:0 1 PM FILLING HAULER 07/30/2024 10:17 PM FILLING HAULER Kelvin Dolan MD PhD LAB BLOOD ORDERABLE S Final Result Performing Organization Address [facility] de Phone Number [facility] Department [place] [address] * (ABNORMAL) Comprehensive metabolic panel (07/30/2024 10:01 PM FILLING HAULER) [facility] Sodium 140 135 - 145 mmol/L Potassium, pl 3.9 3.3 - 4.9 mmol/L [facility] Chloride 100 97 - 110 mmol/L [facility] CO2 28 22 - 32 mmol/L [facility] Anion gap 12 2 - 15 mmol/L [facility] BUN 14 6 - 25 mg/dL [facility] Creatinine 0.94 0.60 - 1.10 mg/dL [facility] Glucose 98 70 - 199 mg/dL [facility] Comment: Interpretive Data Fasting glucose >/= 126 [...] 2022. Calcium 10.2 8.5 - 10.3 mg/dL [facility] Bilirubin, total 0.4 0.1 - 1.2 mg/dL [facility] Protein, pl 8.8(H) 6.5 - 8.5 g/dL [facility] Albumin 5.0 3.5 - 5.0 g/dL [facility] Alk phos 113 40 - 130 Units/L [facility] ALT 40 7 - 45 Units/L [facility] AST 45 10 - 45 Units/L [facility] Blood 07/30/2024 10:0 1 PM FILLING HAULER 07/30/2024 10:17 PM FILLING HAULER us Kelvin Dolan MD PhD LAB BLOOD ORDERABLE S Final Result Performing Organization Address City/State/[facility] Co de Phone Number [facility] Department [place] [address] from Last 3 Months Insurance MEDICAID GENERIC OTHER Care Teams Railway Head Tender Relationship Specialty Start Date End Date Dania Hudson NP [address] [address] PCP - General Nurse Practitioner 03/11/21 Sheldon Ureña MD [address] [address] Consulting Physician Internal Medicine 10/22/23 Marzena Gipson MD [address] [place] [id number] Radiation Oncologist Radiation Oncology 10/22/23
--- OUTSIDE RECORDS SUMMARY | 2024-08-25 15:57 | XMS_ITS | Referral Summary ---
Author Organization [facility] Address [address] [place] [address] Care Team Providers Care Dance Artist Name Role Phone Dania Hudson COMPUTER LAB PARA PROFESSIONAL-BLACK ASH BURNER OPERATOR Primary Care Pro vider Source Comments [facility] [employer],non-owned Affiliates and Associated Physician Practices is amultiple site organization consisting of ambulatory clinics and hospital sitesin [place], [place], [place] and [place]. This disclosure is being madepursuant to the Care Everywhere program and may not contain all information available regarding this patient. Last updated 18.[facility] [employer] Allergies No known active allergies Medications * [...] involvement; offered [place]; Rx clobetasol soln Social History Tobacco Use Types Packs/Day Years [...] 10/01/2016 2:33 PM CDT Plan of Treatment Not on file Care Teams Dance Artist Relationship Specialty Start Date End Date Dania Hudson APRN-MARYAN [address] [place] [phone] PCP - General Nurse Practitioner 07/02/16
[2024-08-25 16:29] LABS: Alanine Aminotransferase 33 U/L (6-35); Albumin Level 4.9 g/dL (3.5-5.1); Alkaline Phosphatase 117 U/L (38-126); Anion Gap 13 mmol/L (4-12); Aspartate Amino Transferase 31 U/L (14-36); Bilirubin,Total 0.5 mg/dL (0.2-1.3); Blood Urea Nitrogen 13 mg/dL (7-17); Calcium 9.8 mg/dL (8.4-10.2); Carbon Dioxide 27 mmol/L (22-30); Chloride 101 mmol/L (98-107); Estimated Glomerular Filt Rate > 60; Glucose 95 mg/dL (65-110); Potassium 4.1 mmol/L (3.4-5.0); Sodium 141 mmol/L (137-145)
[2024-08-25 16:49] LABS: Free T4 Free Thyroxine 0.62 ng/dL (0.78-2.19)
[2024-08-28 09:14] LABS: Thyroid Peroxidase Antibodies >900 IU/mL (<9)
[2024-08-30 19:24] LABS: Thyroid Stimulating Immunoglob 98 % baseline (<140)
== END 2024-08-25 15:55 | disposition home or self-care (01) ==
LOC: ANHLAB 15:55
PROVIDERS: PCP Registered Nurse; Visit Provider Internal Medicine
DX: E03.9 Hypothyroidism, unspecified (principal)
CPT/HCPCS: 36415; 80053; 83519; 84439; 84443; 84445; 86376

== ENCOUNTER 2024-09-15 16:10 | Outpatient (CLI) | payer OTHER, SELFPAY ==
--- OUTSIDE RECORDS SUMMARY | 2024-09-15 16:15 | XMS_ITS | Referral Summary ---
Author Organization [facility] Address [address] [place] [address] Care Team Providers Care Flume Maker Name Role Phone Dania Hudson OBSERVATION NURSE-STONE LAYER Primary Care Pro vider Source Comments [facility] [employer],non-owned Affiliates and Associated Physician Practices is amultiple site organization consisting of ambulatory clinics and hospital sitesin [place], [place], [place] and [place]. This disclosure is being madepursuant to the Care Everywhere program and may not contain all information available regarding this patient. Last updated 18.[facility] [employer] Allergies No known active allergies Medications * [...] of Treatment Not on file Care Teams Flume Maker Relationship Specialty Start Date End Date Dania Hudson APRN-MARYAN [address] [place] [phone] PCP - General Nurse Practitioner 07/02/16
--- OUTSIDE RECORDS SUMMARY | 2024-09-15 16:15 | XMS_ITS | Patient Health Summary ---
Author Organization [facility] Address [address] [facility] [place] [address] Care Team Providers Care Software Development Analyst Name Role Phone Dania Hudson Kayode RADIOLOGY ASSISTANT-OCCUPATIONAL MEDICINE OFFICER Primary Care Pro vider Note from [facility],non-owned Affiliates and Associated Physician Practices is amultiple site organization consisting of ambulatory clinics and hospital sitesin [place], [place], [place] and [place]. This disclosure is being madepursuant to the Care Everywhere program and may not contain all information available regarding this patient. Last updated 18.[facility] Allergies No known active allergies Medications * [...] 21.42 10/01/2016 2:33 PM CDT Care Teams Software Development Analyst Relationship Specialty Start Date End Date Dania Hudson APRN-OCCUPATIONAL MEDICINE OFFICER [address] [place] [phone] PCP - General Nurse Practitioner 07/02/16
--- OUTSIDE RECORDS SUMMARY | 2024-09-15 16:15 | XMS_ITS | Clinical Summary ---
Author Organization [facility] Address [address] [facility] [place] [address] Care Team Providers Care Oral Surgery Assistant Name Role Phone Dania Hudson SUPERVISOR TYPE PHOTOGRAPHY-COLD WORKING INSPECTOR Primary Care Pro vider Source Comments [facility] [employer],non-owned Affiliates and Associated Physician Practices is amultiple site organization consisting of ambulatory clinics and hospital sitesin [place], [place], [place] and [place]. This disclosure is being madepursuant to the Care Everywhere program and may not contain all information available regarding this patient. Last updated 18.[facility] [employer] Allergies No known active allergies Medications * [...] age to complete this topic Care Teams Oral Surgery Assistant Relationship Specialty Start Date End Date Dania Hudson, ALONSO-MARYAN [address] [place] [phone] PCP - General Nurse Practitioner 07/02/16
--- OUTSIDE RECORDS SUMMARY | 2024-09-15 16:15 | XMS_ITS | Referral Summary ---
Author Organization [facility] Address [address] [place] [address] Care Team Providers Care Heel Layer Name Role Phone Dania Hudson NP Primary Care Provider [phone] Sheldon Ureña MD Unavailable [phone] Marzena Gipson MD Unavailable [phone] Encounters Date Type Department Care Team Description 08/01/2024 Telephone [facility] Emergency Department [address] [place] [address] Serafin Pratt RN 07/30/2024 11:31 PM SPAR MACHINE OPERATOR - 07/31/2024 1:44 AM [facility] Emergency [facility] Emergency Department [address] [place] [address] Hypothyroidism, unspecified type (Primary Dx); Generalized body aches Discharge Disposition: Discharge to home or self care from Last 3 Months Allergies No known active allergies Medications propylthiouraci L (PTU) 50 mg tablet Take 1 tablet (50 mg total) by mouth 3 (three) times a day 4 Active levothyroxine (SYNTHROID) 75 mcg tablet Take 1 tablet (75 mcg total) by mouth 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 before 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 30 tablet 5 Active Active Problems Problem Noted Date Diagnosed [...] Comments Blood Pressure 142/97 07/30/2024 9:50 PM SPAR MACHINE OPERATOR Pulse 87 07/30/2024 9:50 PM SPAR MACHINE OPERATOR Temperature 36.6 C (97.8 F) 07/30/2024 9:50 PM SPAR MACHINE OPERATOR Respiratory Rate 18 07/30/2024 9:50 PM SPAR MACHINE OPERATOR Oxygen Saturation 100% 07/30/2024 9:50 PM SPAR MACHINE OPERATOR Inhaled Oxygen Concentration - - Weight 86.2 kg (190 lb) 07/30/2024 9:50 PM SPAR MACHINE OPERATOR Height 167.6 cm (5' 6 ) 07/30/2024 9:50 PM SPAR MACHINE OPERATOR Body Mass Index 30.67 07/30/2024 9:50 PM SPAR MACHINE OPERATOR Plan of Treatment Not on file Procedures Procedure Name Priority Date/Time Associated Diagnosis Comments RESPIRATORY PATHOGEN PANEL Routine 07/31/2024 12:13 AM SPAR MACHINE OPERATOR POCT HCG, URINE Routine 07/30/2024 10:21 PM SPAR MACHINE OPERATOR URINALYSIS, MICROSCOPIC ONLY STAT 07/30/2024 10:10 PM SPAR MACHINE OPERATOR URINALYSIS AND REFLEX TO MICROSCOPIC AND CULTURE STAT 07/30/2024 10:10 PM SPAR MACHINE OPERATOR T4, FREE STAT 07/30/2024 10:01 PM SPAR MACHINE OPERATOR TSH STAT 07/30/2024 10:01 PM SPAR MACHINE OPERATOR EGFR STAT 07/30/2024 10:01 PM SPAR MACHINE OPERATOR DIFFERENTIAL AUTO STAT 07/30/2024 10: 01 PM SPAR MACHINE OPERATOR CREATINE KINASE (CK), TOTAL STAT 07/30/2024 10:01 PM SPAR MACHINE OPERATOR ERYTHROCYTE SEDIMENTATION RATE STAT 07/30/2024 10:01 PM SPAR MACHINE OPERATOR COMPREHENSIVE METABOLIC PANEL STAT 07/30/2024 10:01 PM SPAR MACHINE OPERATOR CBC WITH AUTO DIFFERENTIAL STAT 07/30/2024 10:01 PM SPAR MACHINE OPERATOR from Last 3 Months Results * Respiratory pathogen panel Nasopharyngeal (07/31/2024 12:13 AM SPAR MACHINE OPERATOR) Pathologist [facility] Influenza A RNA Not Detected Not Detected Influenza B RNA Not Detected Not Detected [facility] RSV RNA Not Detected Not Detected [facility] COVID-19 RNA Not Detected Not Detected [facility] Coronavirus 229E RNA Not Detected Not Detected [facility] Coronavirus HKU1 RNA Not Detected Not Detected [facility] Coronavirus NL63 RNA Not Detected Not Detected [facility] Coronavirus OC43 RNA Not Detected Not Detected [facility] Adenovirus DNA Not Detected Not Detected [facility] Metapneumovirus RNA Not Detected Not Detected [facility] Rhinovirus/Enterov irus RNA Not Detected Not Detected [facility] Parainfluenza 1 RNA Not Detected Not Detected [facility] Parainfluenza 2 RNA Not Detected Not Detected [facility] Parainfluenza 3 RNA Not Detected Not Detected [facility] Parainfluenza 4 RNA Not Detected Not Detected [facility] B. pertussis DNA Not Detected Not Detected [facility] B. parapertussis DNA Not Detected Not Detected [facility] C. pneumoniae DNA Not Detected Not Detected [facility] M. pneumoniae DNA Not Detected Not Detected [facility] Nasopharyngeal 07/31/2024 12 :13 AM SPAR MACHINE OPERATOR 07/31/2024 12:39 AM SPAR MACHINE OPERATOR Narrative [facility] - 07/31/2024 1:37 AM SPAR MACHINE OPERATOR Is the Patient experiencing symptoms consistent with COVID?->No Surveillance testing for transplant patient?->No Interpretive Data The [employer] Respiratory Panel (RP2.1) assay is a [...] assay has FDA clearance for testing of [employer] swabs. The performance of additional specimen types has been assessed by the performing laboratory. The performance characteristics of this assay have been determined by [facility] Molecular Infectious Disease Laboratory. Current interpretive data was last revised on 22. us Debi Garza [employer] LAB MICROBIOLOGY - GENERAL ORDER LLUVIA Final Result STEVIE [facility] Department [place] [address] * POCT hCG, urine (07/30/2024 10:21 PM SPAR MACHINE OPERATOR) HCG, ur, POC Negative Negative Lot Number [id number] QC Backgroud Clear Acceptable QC Control Line Acceptable Urine 07/30/2024 10:2 1 PM SPAR MACHINE OPERATOR Kelvin Dolan MD PhD POINT OF CARE TEST ORDERABLES Final Result * (ABNORMAL) Urinalysis reflex to microscopic and culture Urine (07/30/2024 10:10 PM SPAR MACHINE OPERATOR) Color, ur Straw Yellow Clarity, ur Clear Clear [facility] Specific gravity, ur 1.021 1.003 - 1.030 [facility] pH, urine 6.5 [facility] Comment: Interpretive Data U rine pH is affected by diet, medications, systemic acid-base disturbances, and renal tubular function. pH may affect urinary stone formation. For example, urine pH below 6.0 may help reduce the tendency for calcium phosphate stones and pH greater than 6.0 may reduce the tendency for uric acid stone formation. Source: [facility] Current Interpretive Data was last revised on 2017 Protein, ur ql Trace Negative [facility] Glucose, ur ql Negative Negative [facility] Ketones, ur Negative Negative [facility] Bilirubin, ur Negative Negative [facility] Blood, ur 3+(A) Negative [facility] Urobilinogen, ur <2.0 <2.0 mg/dL [facility] Nitrite, ur Negative Negative [facility] Leukocyte esterase, ur Negative Negative [facility] UA reflex comment Reflex to microscopic UA will be performed. [facility] Urine 07/30/2024 10:1 0 PM SPAR MACHINE OPERATOR 07/30/2024 10:15 PM SPAR MACHINE OPERATOR Kelvin Dolan MD PhD LAB MICROBIOLOGY - GENERAL ORDERABLES Final Result [facility] Department [place] [address] * (ABNORMAL) Urinalysis, microscopic only (07/30/2024 10:10 PM SPAR MACHINE OPERATOR) WBC, ur 0-5 0 - 5 /HPF RBC, ur >50(A) 0 - 2 /HPF [facility] Epithelial cells, squamous, ur 1-5 0 - 5 /HPF [facility] Bacteria, ur Trace(A) [facility] Mucous, ur Present(A) [facility] Culture Reflex Comment Reflex conditions for urine culture (WBC >10) not met. [facility] Urine 07/30/2024 10:1 0 PM SPAR MACHINE OPERATOR 07/30/2024 10:15 PM SPAR MACHINE OPERATOR us Kelvin Dolan MD PhD LAB URINE ORDERABLE S Final Result Performing Organization Address City/[facility]/ZIP Co de Phone Number [facility] Department [place] [address] * eGFR (07/30/2024 10:01 PM SPAR MACHINE OPERATOR) eGFR 89 >=60 mL/min/1. 73 m2 Comment: [...] reviewed 2021. Blood 07/30/2024 10:0 1 PM SPAR MACHINE OPERATOR 07/30/2024 10:17 PM SPAR MACHINE OPERATOR us Kelvin Dolan MD PhD LAB BLOOD ORDERABLE S Final Result Performing Organization Address City/[facility]/ZIP Co de Phone Number [facility] Department [place] [address] * Differential, auto (07/30/2024 10:01 PM SPAR MACHINE OPERATOR) Neutrophil abs 3.5 1.5 - 6.5 K/cumm Imm gran abs 0.0 0.0 - 0.1 K/cumm [facility] Lymphocyte abs 2.2 0.8 - 3.3 K/cumm [facility] Monocyte abs 0.4 0.2 - 0.8 K/cumm [facility] Eosinophil abs 0.3 0.0 - 0.5 K/cumm [facility] Basophil abs 0.1 0.0 - 0.1 K/cumm [facility] Neutrophil pct 53.3 % [facility] Comment: Interpretive Data Percent cell count reference ranges are not reported, since discordance with absolute values may lead to misinterpretation of CBC data. Current Interpretive Data was last revised on 2017. Imm gran pct 0.2 % [facility] Comment: Interpretive Data Percent cell count reference ranges are not reported, since discordance with absolute values may lead to misinterpretation of CBC data. Current Interpretive Data was last revised on 2017. Lymphocyte pct 33.9 % [facility] Comment: Interpretive Data Percent cell count reference ranges are not reported, since discordance with absolute values may lead to misinterpretation of CBC data. Current Interpretive Data was last revised on 2017. Monocyte pct 6.8 % [facility] Comment: Interpretive Data Percent cell count reference ranges are not reported, since discordance with absolute values may lead to misinterpretation of CBC data. Current Interpretive Data was last revised on 2017. Eosinophil pct 4.9 % [facility] Comment: Interpretive Data Percent cell count reference ranges are not reported, since discordance with absolute values may lead to misinterpretation of CBC data. Current Interpretive Data was last revised on 2017. Basophil pct 0.9 % [facility] Comment: Interpretive Data Percent cell count reference ranges are not reported, since discordance with absolute values may lead to misinterpretation of CBC data. Current Interpretive Data was last revised on 2017. Blood 07/30/2024 10:0 1 PM SPAR MACHINE OPERATOR 07/30/2024 10:17 PM SPAR MACHINE OPERATOR us Kelvin Dolan MD PhD LAB BLOOD ORDERABLE S Final Result [facility] Department [place] [address] * (ABNORMAL) CBC with auto differential (07/30/2024 10:01 PM SPAR MACHINE OPERATOR) Pathologist [facility] WBC 6.5 3.8 - 9.9 K/cumm Hgb 11.6(L) 11.9 - 15.5 g/dL [facility] Hct 36.3 35.6 - 45.5 % [facility] Plt 311 150 - 400 K/cumm [facility] MPV 10.6 9.1 - 12.3 fL [facility] RBC 4.32 3.90 - 5.20 M/cumm [facility] MCV 84.0 81.3 - 96.4 fL [facility] MCH 26.9(L) 27.1 - 33.3 pg [facility] MCHC 32.0(L) 32.3 - 35.7 g/dL [facility] RDW CV 19.8(H) 11.1 - 14.9 % [facility] RDW SD 59.8(H) 35.7 - 48.1 fL [facility] NRBC abs 0.00 0.00 - 0.01 K/cumm [facility] Blood 07/30/2024 10:0 1 PM SPAR MACHINE OPERATOR 07/30/2024 10:17 PM SPAR MACHINE OPERATOR us Kelvin Dolan MD PhD LAB BLOOD ORDERABLE S Final Result [facility] Department [place] [address] * (ABNORMAL) Erythrocyte sedimentation rate (07/30/2024 10:01 PM SPAR MACHINE OPERATOR) Pathologist [facility] Erythrocyte sedimentation rate 25(H) 1 - 20 mm/hr Blood 07/30/2024 10:0 1 PM SPAR MACHINE OPERATOR 07/30/2024 10:17 PM SPAR MACHINE OPERATOR Kelvin Dolan MD PhD LAB BLOOD ORDERABLE S Final Result Performing Organization Address [facility] de Phone Number [facility] [place] [address] * (ABNORMAL) TSH (07/30/2024 10:01 PM SPAR MACHINE OPERATOR) Thyroid Stimulating Hormone 81.30(H) 0.30 - 4.20 mcIUnit/mL Blood 07/30/2024 10:0 1 PM SPAR MACHINE OPERATOR 07/30/2024 10:17 PM SPAR MACHINE OPERATOR Debi Garza [employer] LAB BLOOD ORDERABLES Final Resul t Performing Organization Address [facility] de Phone Number [facility] Department [place] [address] * (ABNORMAL) T4, free (07/30/2024 10:01 PM SPAR MACHINE OPERATOR) Free T4 0.24(L) 0.90 - 1.70 ng/dL Blood 07/30/2024 10:0 1 PM SPAR MACHINE OPERATOR 07/30/2024 10:17 PM SPAR MACHINE OPERATOR Debi Garza [employer] LAB BLOOD ORDERABLES Final Resul t Performing Organization Address [facility] de Phone Number [facility] Department [place] [address] * (ABNORMAL) Creatine kinase (CK), total (07/30/2024 10:01 PM SPAR MACHINE OPERATOR) CK 504(H) 30 - 200 Units/L Blood 07/30/2024 10:0 1 PM SPAR MACHINE OPERATOR 07/30/2024 10:17 PM SPAR MACHINE OPERATOR us Kelvin Dolan MD PhD LAB BLOOD ORDERABLE S Final Result [facility] Department [place] [address] * (ABNORMAL) Comprehensive metabolic panel (07/30/2024 10:01 PM SPAR MACHINE OPERATOR) Sodium 140 135 - 145 mmol/L Potassium, pl 3.9 3.3 - 4.9 mmol/L [facility] Chloride 100 97 - 110 mmol/L [facility] CO2 28 22 - 32 mmol/L [facility] Anion gap 12 2 - 15 mmol/L [facility] BUN 14 6 - 25 mg/dL [facility] Creatinine 0.94 0.60 - 1.10 mg/dL [facility] Glucose 98 70 - 199 mg/dL [facility] Comment: Interpretive Data Fasting glucose >/= [...] classification and Diagnosis of Diabetes Diabetes Care 202; 46: S19-S40. Current interpretive data was last revised 2022. Calcium 10.2 8.5 - 10.3 mg/dL [facility] Bilirubin, total 0.4 0.1 - 1.2 mg/dL [facility] Protein, pl 8.8(H) 6.5 - 8.5 g/dL [facility] Albumin 5.0 3.5 - 5.0 g/dL [facility] Alk phos 113 40 - 130 Units/L [facility] ALT 40 7 - 45 Units/L [facility] AST 45 10 - 45 Units/L [facility] Blood 07/30/2024 10:0 1 PM SPAR MACHINE OPERATOR 07/30/2024 10:17 PM SPAR MACHINE OPERATOR us Kelvin Dolan MD PhD LAB BLOOD ORDERABLE S Final Result [facility] [place] [address] from Last 3 Months Insurance MEDICAID GENERIC OTHER Care Teams Heel Layer Relationship Specialty Start Date End Date Dania Hudson NP [address] [place] [phone] PCP - General Nurse Practitioner 03/11/21 Sheldon Ureña MD [address] [place] [id number] Consulting Physician Internal Medicine 10/22/23 Marzena Gipson MD [address] [place] [id number] Radiation Oncologist Radiation Oncology 10/22/23
--- OUTSIDE RECORDS SUMMARY | 2024-09-15 16:15 | XMS_ITS | Clinical Summary ---
Author Organization [facility] Address [address] [place] [address] Care Team Providers Care Microbiology Lab Manager Name Role Phone Dania Hudson NP Primary Care Provider [phone] Sheldon Ureña MD Unavailable [phone] Marzena Gipson MD Unavailable [phone] Allergies No known active allergies Medications propylthiouraci L (PTU) 50 mg tablet Take 1 tablet (50 mg total) by mouth 3 (three) times a day 4 Active levothyroxine (SYNTHROID) 75 mcg tablet Take 1 tablet (75 mcg total) by mouth wet suit gluer before breakfast 30 tablet 5 Active Active Problems Problem Noted Date Diagnosed Date Graves disease 10/25/2023 Encounters Date Type Department Care Team Description 08/01/2024 Telephone [facility] Emergency Department [address] [place] [address] Serafin Pratt RN 07/30/2024 11:31 PM PLY SPLICER - 07/31/2024 1:44 AM PLY SPLICER Emergency [facility] Emergency Department [address] [place] [address] Hypothyroidism, unspecified type (Primary Dx); [...] Comments Blood Pressure 142/97 07/30/2024 9:50 PM PLY SPLICER Pulse 87 07/30/2024 9:50 PM PLY SPLICER Temperature 36.6 C (97.8 F) 07/30/2024 9:50 PM PLY SPLICER Respiratory Rate 18 07/30/2024 9:50 PM PLY SPLICER Oxygen Saturation 100% 07/30/2024 9:50 PM PLY SPLICER Inhaled Oxygen Concentration - - Weight 86.2 kg (190 lb) 07/30/2024 9:50 PM PLY SPLICER Height 167.6 cm (5' 6 ) 07/30/2024 9:50 PM PLY SPLICER Body Mass Index 30.67 07/30/2024 9:50 PM PLY SPLICER Plan of Treatment Health Maintenance Due Date Last Done Comments Cervical Cancer Screening 2003 Depression Screening 2003 Hepatitis C Screening 2003 Meningococcal B Vaccine (2 o f 2 - Bexsero SCDM 2-dose series) 09/10/2020 03/13/2020 Regular Well Visit/Exam 18-64 2021 Covid-19 Vaccine (4 2023-2 5 season) 2024 12/13/2020, 11/20/2020, 11/15/2020 Influenza Vaccine (#1) 2024 , 03/21/2020, 04/12/2018, Additional history exists DTaP/Tdap/Td Vaccine (7 - Td or Tdap) 03/12/2025 03/12/2015, 03/06/2008, 10/01/2004, Additional history exists Hepatitis B Screening Completed 2003 , 2003, 2003, Additional history exists Pneumococcal vaccine <65 Completed 005, 2003, 2003, Additional history exists Varicella Vaccines Completed 03/06/2008, 07/16/2004 HPV Vaccines Completed 02/11/2016, 0203/2016, 06/19/2015 Meningococcal Vaccine Completed 03/13/2020, 015 Procedures Procedure Name Priority Date/Time Associated Diagnosis Comments RESPIRATORY PATHOGEN PANEL Routine 07/31/2024 12:13 AM PLY SPLICER POCT HCG, URINE Routine 07/30/2024 10:21 PM PLY SPLICER URINALYSIS, MICROSCOPIC ONLY STAT 07/30/2024 10:10 PM PLY SPLICER URINALYSIS AND REFLEX TO MICROSCOPIC AND CULTURE STAT 07/30/2024 10:10 PM PLY SPLICER T4, FREE STAT 07/30/2024 10:01 PM PLY SPLICER TSH STAT 07/30/2024 10:01 PM PLY SPLICER EGFR STAT 07/30/2024 10:01 PM PLY SPLICER DIFFERENTIAL AUTO STAT 07/30/2024 10: 01 PM PLY SPLICER CREATINE KINASE (CK), TOTAL STAT 07/30/2024 10:01 PM PLY SPLICER ERYTHROCYTE SEDIMENTATION RATE STAT 07/30/2024 10:01 PM PLY SPLICER COMPREHENSIVE METABOLIC PANEL STAT 07/30/2024 10:01 PM PLY SPLICER CBC WITH AUTO DIFFERENTIAL STAT 07/30/2024 10:01 PM PLY SPLICER from Last 3 Months Results * Respiratory pathogen panel Nasopharyngeal (07/31/2024 12:13 AM PLY SPLICER) Influenza A RNA Not Detected Not Detected Influenza B RNA Not Detected Not Detected [facility] RSV RNA Not Detected Not Detected [facility] COVID-19 RNA Not Detected Not Detected [facility] Coronavirus 229E RNA Not Detected Not Detected [facility] Coronavirus HKU1 RNA Not Detected Not Detected [facility] Coronavirus NL63 RNA Not Detected Not Detected [facility] Coronavirus OC43 RNA Not Detected Not Detected [facility] Adenovirus DNA Not Detected Not Detected [facility] Metapneumovirus RNA Not Detected Not Detected [facility] Rhinovirus/Enterov irus RNA Not Detected Not Detected [facility] Parainfluenza 1 RNA Not Detected Not Detected [facility] Parainfluenza 2 RNA Not Detected Not Detected [facility] Parainfluenza 3 RNA Not Detected Not Detected [facility] Parainfluenza 4 RNA Not Detected Not Detected [facility] B. pertussis DNA Not Detected Not Detected [facility] B. parapertussis DNA Not Detected Not Detected [facility] C. pneumoniae DNA Not Detected Not Detected [facility] M. pneumoniae DNA Not Detected Not Detected [facility] Nasopharyngeal 07/31/2024 12 :13 AM PLY SPLICER 07/31/2024 12:39 AM PLY SPLICER Narrative [facility] - 07/31/2024 1:37 AM PLY SPLICER Is the Patient experiencing symptoms consistent with COVID?->No Surveillance testing for transplant patient?->No Interpretive Data The [employer] FilmArray Respiratory Panel (RP2.1) assay is a [...] assay has FDA clearance for testing of AGENT CONTRACT CLERK swabs. The performance of additional specimen types has been assessed by the performing laboratory. The performance characteristics of this assay have been determined by [facility] Molecular Infectious Disease Laboratory. Current interpretive data was last revised on 22. Debi Garza AGENT CONTRACT CLERK LAB MICROBIOLOGY - GENERAL ORDER LLUVIA Final Result [facility] Department [place] [address] * POCT hCG, urine (07/30/2024 10:21 PM PLY SPLICER) HCG, ur, POC Negative Negative Lot Number [id number] QC Backgroud Clear Acceptable QC Control Line Acceptable Urine 07/30/2024 10:2 1 PM PLY SPLICER Kelvin Dolan MD PhD POINT OF CARE TEST ORDERABLES Final Result * (ABNORMAL) Urinalysis reflex to microscopic and culture Urine (07/30/2024 10:10 PM PLY SPLICER) Color, ur Straw Yellow Clarity, ur Clear Clear [facility] Specific gravity, ur 1.021 1.003 - 1.030 [facility] pH, urine 6.5 [facility] Comment: Interpretive Data U rine pH is affected by diet, medications, systemic acid-base disturbances, and renal tubular function. pH may affect urinary stone formation. For example, urine pH below 6.0 may help reduce the tendency for calcium phosphate stones and pH greater than 6.0 may reduce the tendency for uric acid stone formation. Source: [facility] Current Interpretive Data was last revised on 2017 Protein, ur ql Trace Negative [facility] Glucose, ur ql Negative Negative [facility] Ketones, ur Negative Negative [facility] Bilirubin, ur Negative Negative [facility] Blood, ur 3+(A) Negative [facility] Urobilinogen, ur <2.0 <2.0 mg/dL [facility] Nitrite, ur Negative Negative [facility] Leukocyte esterase, ur Negative Negative [facility] UA reflex comment Reflex to microscopic UA will be performed. [facility] Urine 07/30/2024 10:1 0 PM PLY SPLICER 07/30/2024 10:15 PM PLY SPLICER Kelvin Dolan MD PhD LAB MICROBIOLOGY - GENERAL ORDERABLES Final Result Performing Organization Address [facility] de Phone Number [facility] [address] * (ABNORMAL) Urinalysis, microscopic only (07/30/2024 10:10 PM PLY SPLICER) WBC, ur 0-5 0 - 5 /HPF RBC, ur >50(A) 0 - 2 /HPF [facility] Epithelial cells, squamous, ur 1-5 0 - 5 /HPF [facility] Bacteria, ur Trace(A) [facility] Mucous, ur Present(A) [facility] Culture Reflex Comment Reflex conditions for urine culture (WBC >10) not met. [facility] Urine 07/30/2024 10:1 0 PM PLY SPLICER 07/30/2024 10:15 PM PLY SPLICER Kelvin Dolan MD PhD LAB URINE ORDERABLE S Final Result Performing Organization Address [facility] Co de Phone Number [facility] [place] [address] * eGFR (07/30/2024 10:01 PM PLY SPLICER) Pathologist [facility] eGFR 89 >=60 mL/min/1. 73 m2 Comment: [...] reviewed 2021. Blood 07/30/2024 10:0 1 PM PLY SPLICER 07/30/2024 10:17 PM PLY SPLICER us Kelvin Dolan MD PhD LAB BLOOD ORDERABLE S Final Result [facility] Department [place] [address] * Differential, auto (07/30/2024 10:01 PM PLY SPLICER) [facility] Neutrophil abs 3.5 1.5 - 6.5 K/cumm Imm gran abs 0.0 0.0 - 0.1 K/cumm [facility] Lymphocyte abs 2.2 0.8 - 3.3 K/cumm [facility] Monocyte abs 0.4 0.2 - 0.8 K/cumm [facility] Eosinophil abs 0.3 0.0 - 0.5 K/cumm [facility] Basophil abs 0.1 0.0 - 0.1 K/cumm [facility] Neutrophil pct 53.3 % [facility] Comment: Interpretive Data Percent cell count reference ranges are not reported, since discordance with absolute values may lead to misinterpretation of CBC data. Current Interpretive Data was last revised on 2017. Imm gran pct 0.2 % [facility] Comment: Interpretive Data Percent cell count reference ranges are not reported, since discordance with absolute values may lead to misinterpretation of CBC data. Current Interpretive Data was last revised on 2017. Lymphocyte pct 33.9 % [facility] Comment: Interpretive Data Percent cell count reference ranges are not reported, since discordance with absolute values may lead to misinterpretation of CBC data. Current Interpretive Data was last revised on 2017. Monocyte pct 6.8 % [facility] Comment: Interpretive Data Percent cell count reference ranges are not reported, since discordance with absolute values may lead to misinterpretation of CBC data. Current Interpretive Data was last revised on 2017. Eosinophil pct 4.9 % [facility] Comment: Interpretive Data Percent cell count reference ranges are not reported, since discordance with absolute values may lead to misinterpretation of CBC data. Current Interpretive Data was last revised on 2017. Basophil pct 0.9 % [facility] Comment: Interpretive Data Percent cell count reference ranges are not reported, since discordance with absolute values may lead to misinterpretation of CBC data. Current Interpretive Data was last revised on 2017. Blood 07/30/2024 10:0 1 PM PLY SPLICER 07/30/2024 10:17 PM PLY SPLICER us Kelvin Dolan MD PhD LAB BLOOD ORDERABLE S Final Result [facility] [place] [address] * (ABNORMAL) CBC with auto differential (07/30/2024 10:01 PM PLY SPLICER) WBC 6.5 3.8 - 9.9 K/cumm Hgb 11.6(L) 11.9 - 15.5 g/dL [facility] Hct 36.3 35.6 - 45.5 % [facility] Plt 311 150 - 400 K/cumm [facility] MPV 10.6 9.1 - 12.3 fL [facility] RBC 4.32 3.90 - 5.20 M/cumm [facility] MCV 84.0 81.3 - 96.4 fL [facility] MCH 26.9(L) 27.1 - 33.3 pg [facility] MCHC 32.0(L) 32.3 - 35.7 g/dL [facility] RDW CV 19.8(H) 11.1 - 14.9 % [facility] RDW SD 59.8(H) 35.7 - 48.1 fL [facility] NRBC abs 0.00 0.00 - 0.01 K/cumm [facility] Blood 07/30/2024 10:0 1 PM PLY SPLICER 07/30/2024 10:17 PM PLY SPLICER us Kelvin Dolan MD PhD LAB BLOOD ORDERABLE S Final Result Performing Organization Address City/[facility]/ZIP Co de Phone Number [facility] Department [place] [address] * (ABNORMAL) Erythrocyte sedimentation rate (07/30/2024 10:01 PM PLY SPLICER) Erythrocyte sedimentation rate 25(H) 1 - 20 mm/hr Blood 07/30/2024 10:0 1 PM PLY SPLICER 07/30/2024 10:17 PM PLY SPLICER us Kelvin Dolan MD PhD LAB BLOOD ORDERABLE S Final Result [facility] [address] * (ABNORMAL) TSH (07/30/2024 10:01 PM PLY SPLICER) Thyroid Stimulating Hormone 81.30(H) 0.30 - 4.20 mcIUnit/mL Blood 07/30/2024 10:0 1 PM PLY SPLICER 07/30/2024 10:17 PM PLY SPLICER Debi Garza AGENT CONTRACT CLERK LAB BLOOD ORDERABLES Final Resul t Performing Organization Address City/[facility] Co de Phone Number [facility] [place] [address] * (ABNORMAL) T4, free (07/30/2024 10:01 PM PLY SPLICER) Pathologist [facility] Free T4 0.24(L) 0.90 - 1.70 ng/dL Blood 07/30/2024 10:0 1 PM PLY SPLICER 07/30/2024 10:17 PM PLY SPLICER Debi Garza AGENT CONTRACT CLERK LAB BLOOD ORDERABLES Final Resul t Performing Organization Address [facility] Co de Phone Number [facility] Department [place] [address] * (ABNORMAL) Creatine kinase (CK), total (07/30/2024 10:01 PM PLY SPLICER) [facility] CK 504(H) 30 - 200 Units/L Blood 07/30/2024 10:0 1 PM PLY SPLICER 07/30/2024 10:17 PM PLY SPLICER Kelvin Dolan MD PhD LAB BLOOD ORDERABLE S Final Result Performing Organization Address [facility] Co de Phone Number [facility] [place] [address] * (ABNORMAL) Comprehensive metabolic panel (07/30/2024 10:01 PM PLY SPLICER) [facility] Sodium 140 135 - 145 mmol/L Potassium, pl 3.9 3.3 - 4.9 mmol/L [facility] Chloride 100 97 - 110 mmol/L [facility] CO2 28 22 - 32 mmol/L [facility] Anion gap 12 2 - 15 mmol/L [facility] BUN 14 6 - 25 mg/dL [facility] Creatinine 0.94 0.60 - 1.10 mg/dL [facility] Glucose 98 70 - 199 mg/dL [facility] Comment: Interpretive Data Fasting glucose >/= [...] 2022. Calcium 10.2 8.5 - 10.3 mg/dL [facility] Bilirubin, total 0.4 0.1 - 1.2 mg/dL [facility] Protein, pl 8.8(H) 6.5 - 8.5 g/dL [facility] Albumin 5.0 3.5 - 5.0 g/dL [facility] Alk phos 113 40 - 130 Units/L [facility] ALT 40 7 - 45 Units/L [facility] AST 45 10 - 45 Units/L [facility] Blood 07/30/2024 10:0 1 PM PLY SPLICER 07/30/2024 10:17 PM PLY SPLICER us Kelvin Dolan MD PhD LAB BLOOD ORDERABLE S Final Result Performing Organization Address City/State/[facility] Co de Phone Number [facility] [place] [address] from Last 3 Months Insurance MEDICAID GENERIC OTHER Care Teams Microbiology Lab Manager Relationship Specialty Start Date End Date Dania Hudson NP [address] [place] [id number] PCP - General Nurse Practitioner 03/11/21 Sheldon Ureña MD [address] [place] [id number] Consulting Physician Internal Medicine 10/22/23 Marzena Gipson MD [address] [place] [id number] Radiation Oncologist Radiation Oncology 10/22/23
[2024-09-15 17:10] LABS: Free T4 Free Thyroxine 1.03 ng/dL (0.78-2.19)
== END 2024-09-15 16:11 | disposition home or self-care (01) ==
LOC: ANHLAB 16:12
PROVIDERS: PCP Registered Nurse; Visit Provider Internal Medicine
DX: E04.1 Nontoxic single thyroid nodule (principal); E05.90 Thyrotoxicosis, unspecified without thyrotoxic crisis or storm; E03.9 Hypothyroidism, unspecified
CPT/HCPCS: 36415; 84439; 84443